=== PATIENT | female | born 1960 | race Caucasian/White ===

== ENCOUNTER → 2020-06-01 | Outpatient (CLI) | payer BC ==
[~2020-06-01] MED LIST: ALLEGRA ALLERG180 MG PO; ANAPROX DS550 MG PO; BENTYL 10 MG CA10 M1 PO; ESTRADIOL 1 MG T1 M1 PO; FISH OIL 1,2001 EAC4 PO; GLUCOSAMINE &1 EACH PO; HYDROCODON-ACE1 EACH PO; HYDROCODONE-AP1 EAC6 PO; LEVOTHYROXINE 0.1 MG PO; LEVOXYL100 MCG PO; MOBIC15 MG PO; MUCINEX600 MG PO; MULTIVITAMINS PO; NORCO 5-325 TA1 EACH PO; PROVERA5 MG PO; SIMVASTATIN40 MG PO; SYNTHROID75 MCG PO
== END ==
LOC: LAB 12:12
PROVIDERS: ATTEND Neuromusculoskeletal Medicine & OMM
DX: Z20.822 Contact with and (suspected) exposure to COVID-19 (principal)

== ENCOUNTER → 2021-05-30 | Outpatient (CLI) | payer BC | LOC: NUC 13:20 | PROVIDERS: ATTEND Nurse Practitioner | DX: Z78.0 Asymptomatic menopausal state (principal) ==